=== PATIENT | female | born 1945 | race Caucasian/White ===

== ENCOUNTER → 2016-12-31 | Outpatient (CLI) | payer MEDICARE, OTHER | LOC: RAD 11:24 | DX: R76.11 Nonspecific reaction to tuberculin skin test without active tuberculosis (principal); M25.511 Pain in right shoulder | CPT/HCPCS: 71010; 71100; 73030 ==

== ENCOUNTER → 2017-01-09 | Outpatient (CLI) | payer MEDICARE, OTHER | LOC: EMI 09:49 | DX: M25.512 Pain in left shoulder (principal); R29.898 Other symptoms and signs involving the musculoskeletal system; M75.100 Unspecified rotator cuff tear or rupture of unspecified shoulder, not specified as traumatic; M75.102 Unspecified rotator cuff tear or rupture of left shoulder, not specified as traumatic; M19.012 Primary osteoarthritis, left shoulder; M25.412 Effusion, left shoulder; M75.52 Bursitis of left shoulder | CPT/HCPCS: 73221 ==

== ENCOUNTER → 2017-02-04 | Outpatient (CLI) | payer MEDICARE, OTHER ==
[2017-02-04 17:37] LABS: HEMOGLOBIN 13.6 gm/dl (12.3-15.3); RED BLOOD COUNT 4.02 M/UL (4.00-5.10)
[2017-02-04 17:55] LABS: BUN/CREATININE RATIO 17 (0-10)
== END ==
LOC: OPSV 16:48
PROVIDERS: Family Medicine
DX: R19.7 Diarrhea, unspecified (principal); R63.8 Other symptoms and signs concerning food and fluid intake
CPT/HCPCS: 36415; 80053; 85025; 96360; J7030

== ENCOUNTER → 2017-02-05 | Outpatient (CLI) | payer MEDICARE, OTHER | LOC: LAB 09:04 → LBRF 09:04 | DX: R19.7 Diarrhea, unspecified (principal) ==

== ENCOUNTER → 2017-02-06 | Outpatient (CLI) | payer MEDICARE, OTHER ==
[2017-02-06 09:48] LABS: BUN/CREATININE RATIO 13 (0-10)
== END ==
LOC: LAB 08:42
PROVIDERS: Family Medicine
DX: E87.1 Hypo-osmolality and hyponatremia (principal)
CPT/HCPCS: 36415; 80048

== ENCOUNTER → 2020-11-24 | Outpatient (CLI) | payer MEDICARE, OTHER ==
[~2020-11-24] MED LIST: ALDACTONE 25MG25 MG PO; BENICAR40 MG PO; FOLIC ACID 1 MG1 MG PO; HYDROCODON-ACE1 EAC2 PO; IRON325 M1 PO; LIPITOR TAB 1010 MG PO; NEURONTIN300 MG PO; PAXIL 20 MG TAB20 MG PO; PROTONIX40 MG PO; SINEMET 25-1001 EACH PO; TEGRETOL 200 M200 MG PO; TUMS200 MG PO; VITAMIN D21250 MCG PO; VITAMIN D325 MC6 PO; VOLTAREN100 GM TP
== END ==
LOC: LBRF 18:09
DX: N39.0 Urinary tract infection, site not specified (principal)
CPT/HCPCS: 81001; 87086